=== PATIENT | male | born 1985 | race Caucasian/White ===

== ENCOUNTER 2024-11-19 13:05 | Inpatient (IN) | payer OTHER, SELFPAY ==
[2024-11-17 19:06] VITALS: BP 170/118
[2024-11-17] MEDS: TYLENOL 1000 MG PO (19:13)
[2024-11-17 19:26] LABS: % Basophils 0.5 % (0-2); % Eosinophils 0.3 % (0-6); % Immature Granulocytes 0.5 % (0-0.5); % Lymphocytes 5.8 % (20.5-51.1); % Monocytes 6.8 % (1.7-9.3); % Neutrophils 86.1 % (42.2-75.2); Absolute Basophils 0.1 10^3/uL (0-0.2); Absolute Immature Granulocytes 0.1 10^3/uL (0-0.05); Absolute Lymphocytes 0.6 10^3/uL (1.2-3.4); Absolute Monocytes 0.7 10^3/uL (0.1-0.6); Absolute Neutrophils 8.4 10^3/uL (1.4-6.5); Hematocrit 38.7 % (39.0-52.0); Hemoglobin 13.6 g/dL (13.0-18.0); Mean Corp Hgb Conc. 35.1 g/dL (33.0-37.0); Mean Corpuscular Hgb 31.5 pg (27.0-31.0); Mean Corpuscular Volume 89.6 fL (80.0-94.0); Mean Platelet Volume 8.8 fL (7.4-10.4); Nucleated Red Blood Cells % 0 % (-); Platelet Count 170 10^3/uL (130-400); Red Blood Cell Count 4.32 10^6/uL (4.70-6.10); Red Cell Dist. Width 13.3 % (11.5-14.5); White Blood Cell Count 9.8 10^3/uL (4.8-10.8)
[2024-11-17 19:43] LABS: ALT (SGPT) 26 U/L (0-50); AST (SGOT) 38 U/L (17-59); Alkaline Phosphatase 118 U/L (38-126); Blood Urea Nitrogen 12 mg/dl (9-20); Carbon Dioxide 20 mmol/L (22-30); Chloride 100 mmol/L (98-107); Glucose 113 mg/dl (70-99); Potassium 4.1 mmol/L (3.5-5.1); Sodium 130 mmol/L (135-145); Total Bilirubin 1.2 mg/dl (0.2-1.3); eGFR > 60.00
[2024-11-17 20:52] VITALS: BP 159/118
[2024-11-17 20:55] VITALS: BMI 32.7
[2024-11-17 21:00] VITALS: BP 162/100
[2024-11-17] MEDS: NSS 1000 IV ×2 (21:05→22:42)
[2024-11-17] MEDS: TORADOL 15 MG IV (21:12)
[2024-11-17] MEDS: ATIVAN 0.5 MG IV ×2 (21:12→22:50)
--- NOTE | 2024-11-17 21:19 | ED.GENMED ---
History of Present Illness
<HUGH Gallego Jr. Last Filed: 11/18/24 00:22>
General
Chief Complaint: Abdominal Pain
Source: patient
Exam Limitations: none
Time Seen by Provider: 11/17/24 20:34
Nursing documentation reviewed up to this point in time: agreed with
History of Present Illness
History of Present Illness:
39-year-old male presenting to the emergency department today with concerns of right side abdominal pain starting this morning roughly 12 hours prior to arrival to the emergency department. No nausea or vomiting. Started feeling feverish and
chills over the past few hours. Denies any history of abdominal surgeries. No chest pain shortness of breath no changes in bowel movements.
Review of Systems
<HUGH Gallego Jr. Last Filed: 11/18/24 00:22>
Review of Systems
Allergies reviewed?: Yes
All Other Systems: ROS reviewed and negative except as documented in HPI and ROS
Phy Exam
<HUGH Gallego Jr. Last Filed: 11/18/24 00:22>
Physical Exam
Physical Exam:
GENERAL: Alert , in no apparent distress
EYE: pupils equal and reactive
NECK: Supple, no significant adenopathy.
ENT: o/p clr, mmm.
CARDIAC: Regular rate and rhythm .
LUNGS: Clear breath sounds bilaterally, no acute respiratory distress, no wheezes/rales/rhonchi
ABDOMEN: Right lower quadrant abdominal pain nonperitoneal no tenderness throughout the remainder of the abdomen
NEUROLOGICAL: Alert and oriented, no focal neuro deficits
SKIN: Warm and dry, skin intact.
MUSCULOSKELETAL: No edema, well perfused.
PSYCH: Normal and appropriate interaction.
Sepsis
<Igor Beckford Jr., PA-C - Last Filed: 11/18/24 00:22>
Sepsis Screening
Sepsis Assessment: Sepsis
Sepsis Screen
Sepsis Screen: Sepsis
Date: 11/18/24
Time: 00:22
Course
<Igor Beckford Jr., PA-C - Last Filed: 11/18/24 00:22>
Orders/Labs/Results
Orders:
Orders
11/17/24 19:10
ECG [Electrocardiogram (*1)] Urgent
Reason for Study: Tachycardia
11/17/24 19:11
EKG- Treatment ONCE
Acetaminophen [Tylenol] 1,000 mg .ROUTE .STK-MED ONE
11/17/24 19:13
Acetaminophen [Tylenol] 1,000 mg PO NOW STA
11/17/24 19:16
Complete Blood Count/With Diff Urgent
Comprehensive Metabolic Panel Urgent
11/17/24 20:52
CT Abd/Pel (IV only)-DH only Urgent
Comment:
Reason For Exam: RLQ pain
11/17/24 20:54
Lorazepam [Ativan] 0.5 mg IV NOW STA
11/17/24 20:55
0.9% Sodium Chloride 1000 ml [Nss] 1,000 ml IV BOLUS
11/17/24 21:08
Ketorolac [Toradol] 15 mg IV NOW STA
11/17/24 21:09
Ketorolac [Toradol] 15 mg .ROUTE .STK-MED ONE
11/17/24 21:13
Blood Culture Q30M
JONATHAN Source: Blood/Venous
Specimen Description:
Blood Culture Q30M
JONATHAN Source: Blood/Venous
Specimen Description:
11/17/24 21:19
Piperacillin/Tazo 4.5 Gram [Zosyn] 4.5 gram in 100 ml IV NOW
11/17/24 22:16
Morphine Sulfate 4 mg IV NOW STA
11/17/24 22:28
0.9% Sodium Chloride 1000 ml [Nss] 1,000 ml IV BOLUS
11/17/24 22:47
Lorazepam [Ativan] 0.5 mg IV NOW STA
11/17/24 23:30
Urinalysis Urgent
Date Specimen was Collected: 11/17/24
Time Specimen was Collected: 19:10
Abnormal Lab Results
11/17/24
19:16
RBC 4.32 L 10^6/uL
(4.70-6.10)
Hct 38.7 L %
(39.0-52.0)
MCH 31.5 H pg
(27.0-31.0)
Abs Immat Gran (auto) 0.1 H 10^3/uL
(0-0.05)
Absolute Neuts (auto) 8.4 H 10^3/uL
(1.4-6.5)
Absolute Lymphs (auto) 0.6 L 10^3/uL
(1.2-3.4)
Absolute Monos (auto) 0.7 H 10^3/uL
(0.1-0.6)
Neutrophils % 86.1 H %
(42.2-75.2)
Lymphocytes % 5.8 L %
(20.5-51.1)
Sodium 130 L mmol/L
(135-145)
Carbon Dioxide 20 L mmol/L
(22-30)
Glucose 113 H mg/dl
(70-99)
11/17/24 19:16
11/17/24 19:16
Vital Signs
Initial and Last Documented VS:
Initial Vital Signs
Temp Pulse Resp BP Pulse Ox
100.2 F 146 24 170/118 97
11/17/24 19:06 11/17/24 19:06 11/17/24 19:06 11/17/24 19:06 11/17/24 19:06
Last Documented Vital Signs
Temp Pulse Resp BP Pulse Ox
102.4 F H 134 25 140/101 95
11/17/24 22:45 11/18/24 00:00 11/18/24 00:00 11/18/24 00:00 11/18/24 00:00
<Vangie Madrid MD - Last Filed: 11/17/24 22:49>
Orders/Labs/Results
Orders:
Orders
11/17/24 19:10
ECG [Electrocardiogram (*1)] Urgent
Reason for Study: Tachycardia
11/17/24 19:11
EKG- Treatment ONCE
Acetaminophen [Tylenol] 1,000 mg .ROUTE .STK-MED ONE
11/17/24 19:13
Acetaminophen [Tylenol] 1,000 mg PO NOW STA
11/17/24 19:16
Complete Blood Count/With Diff Urgent
Comprehensive Metabolic Panel Urgent
11/17/24 20:52
CT Abd/Pel (IV only)-[facility] only Urgent
Comment:
Reason For Exam: RLQ pain
11/17/24 20:54
Lorazepam [Ativan] 0.5 mg IV NOW STA
11/17/24 20:55
0.9% Sodium Chloride 1000 ml [Nss] 1,000 ml IV BOLUS
11/17/24 21:08
Ketorolac [Toradol] 15 mg IV NOW STA
11/17/24 21:09
Ketorolac [Toradol] 15 mg .ROUTE .STK-MED ONE
11/17/24 21:13
Blood Culture Q30M
JONATHAN Source: Blood/Venous
Specimen Description:
Blood Culture Q30M
JONATHAN Source: Blood/Venous
Specimen Description:
11/17/24 21:19
Piperacillin/Tazo 4.5 Gram [Zosyn] 4.5 gram in 100 ml IV NOW
11/17/24 22:16
Morphine Sulfate 4 mg IV NOW STA
11/17/24 22:28
0.9% Sodium Chloride 1000 ml [Nss] 1,000 ml IV BOLUS
11/17/24 22:47
Lorazepam [Ativan] 0.5 mg IV NOW STA
11/17/24 23:30
Urinalysis Urgent
Date Specimen was Collected: 11/17/24
Time Specimen was Collected: 19:10
Abnormal Lab Results
11/17/24
19:16
RBC 4.32 L 10^6/uL
(4.70-6.10)
Hct 38.7 L %
(39.0-52.0)
MCH 31.5 H pg
(27.0-31.0)
Abs Immat Gran (auto) 0.1 H 10^3/uL
(0-0.05)
Absolute Neuts (auto) 8.4 H 10^3/uL
(1.4-6.5)
Absolute Lymphs (auto) 0.6 L 10^3/uL
(1.2-3.4)
Absolute Monos (auto) 0.7 H 10^3/uL
(0.1-0.6)
Neutrophils % 86.1 H %
(42.2-75.2)
Lymphocytes % 5.8 L %
(20.5-51.1)
Sodium 130 L mmol/L
(135-145)
Carbon Dioxide 20 L mmol/L
(22-30)
Glucose 113 H mg/dl
(70-99)
11/17/24 19:16
11/17/24 19:16
Vital Signs
Initial and Last Documented VS:
Initial Vital Signs
Temp Pulse Resp BP Pulse Ox
100.2 F 146 24 170/118 97
11/17/24 19:06 11/17/24 19:06 11/17/24 19:06 11/17/24 19:06 11/17/24 19:06
Last Documented Vital Signs
Temp Pulse Resp BP Pulse Ox
102.4 F H 134 25 140/101 95
11/17/24 22:45 11/18/24 00:00 11/18/24 00:00 11/18/24 00:00 11/18/24 00:00
<Igor Beckford Jr., PA-C - Last Filed: 11/18/24 00:22>
MDM/Problems Addressed
MDM/Problems Addressed:
39-year-old male presenting to the emergency department today with concerns of right lower quadrant abdominal pain throughout the day today. On arrival patient tachycardic low-grade temperature. Was given no significant white count does have pain
to the right lower quadrant concern for potential appendicitis. CT scan showing appendicitis without obvious complication. No white count here patient was somewhat tachycardic was given Ativan concerning claims he does have anxiety also given
morphine for pain as well as Toradol for fever. Additionally received 2 L of fluid. Patient in no distress throughout ER stay did have improvement of heart rate here will be admitted. Case discussed with surgeon. Plan for surgery in the morning.
<Igor Beckford Jr., PA-C - Last Filed: 11/18/24 00:22>
*Critical Care Note
Total Time (30-74mins, 75-104mins- exclusive of procedures): Not Applicable
ED Attending Note
<Igor Beckford Jr., PA-C - Last Filed: 11/18/24 00:22>
-
Portions of this chart may have been created with voice recognition software.� Occasional wrong word or��sound alike� substitutions may have occurred due to the inherent limitations of voice recognition software.
<Vangie Madrid MD - Last Filed: 11/17/24 22:49>
ED Attending Note
Patient seen and examined by attending physician: Yes
I performed the substantive portion of visit, reviewed & personally made and approve the management plan that is documented in note by myself or NICOL.: Yes
ED Attending Note:
Patient has a flat affect but also appears anxious. He is tachycardic. Abdomen is mildly distended with right lower quadrant tenderness. Tachycardia may be due to some degree of alcohol withdrawal.
Discharge Plan
Departure
Patient Disposition: Admit
Date of Disposition: 11/18/24
Time of Disposition: 00:21
Admit to: Med/Surg
Admit to doctor: Hiral
Presentation/result/management discussed w/ accepting MD/DO: Gen surgery
Patient with high blood pressure during this ER visit?: No
Condition: Fair
Covid-19: Not Applicable
Discharge Problem:
Acute appendicitis
Prescriptions:
No Action
lorazepam 0.5 mg Tablet
0.5 mg PO TID PRN (Reason: anxiety)
sertraline
PO DAILY
Referrals:
Toney Iqbal MD [Family Provider] -
Interventions
Interventions:
*Risk Screen - Suicide Last Done: 11/17/24 19:06
*General Assessment Last Done: 11/17/24 21:03
*Neglect/Abuse Screening Last Done: 11/17/24 19:06
*ED COVID-19 Vaccine History Last Done: 11/17/24 21:03
KO-[facility] Assessment Last Done: 11/17/24 21:03
Discharge Date and Time
Print Language: URDU
[2024-11-17 21:46] VITALS: BP 159/108
[2024-11-17] MEDS: ZOSYN 100 IV (21:48)
[2024-11-17 22:00] VITALS: BP 156/101
[2024-11-17] MEDS: MORPHINE SULFATE 4 MG IV (22:42)
[2024-11-17 23:00] VITALS: BP 154/114
[2024-11-18] VITALS (16 sets, daily range): BP systolic 10–158; BP diastolic 81–101; BMI 32.8
[2024-11-18 00:33] LABS: Urine Albumin 2+ (Neg - Trace); Urine Bilirubin Negative (Negative); Urine Character Clear (Clear); Urine Color Yellow; Urine Glucose Negative (Negative); Urine Ketone 1+ (Negative); Urine Leukocyte Negative (Negative); Urine Nitrite Negative (Negative); Urine Occult Blood Negative (Negative); Urine Urobilinogen Negative (Neg - 1+)
[2024-11-18 00:49] LABS: Urine Red Blood Cell 0-2 /HPF (0-2); Urine White Cell 0-2 /HPF (0-5)
[2024-11-18] MEDS: OFIRMEV 100 IV (01:49)
[2024-11-18] MEDS: NORMOSOL-R/PLASMALYTE-A 1000 IV (03:00)
[2024-11-18] MEDS: MORPHINE SULFATE 2 MG IV ×3 (03:12→07:35)
[2024-11-18] MEDS: ATIVAN 1 MG IV ×2 (03:13→05:22)
--- NOTE | 2024-11-18 03:34 | HPS.HSE ---
Addendum entered and electronically signed by Delbert Blackman MD 11/18/24 08:16:
Patient's mother updated via phone.
Addendum entered and electronically signed by Delbert Blackman MD 11/18/24 08:12:
I saw and examined the patient.
The PA's note was reviewed and I agree with the note.
Comment:
Seen recently.
History, vitals, labs, imaging reviewed. Patient seen and examined.
39 yo M with acute nonperforated appendicitis and associated fever and RLQ pain/tenderness. Recommended laparoscopic appendectomy. Risks/benefits discussed. Risks covered include but not limited to bleeding, infection, ureteral injury, bowel or
solid organ injury, stapleline leak, and anesthetic risks. He agrees to proceed.
Original Note:
Family Physician
-
Family Physician: Toney Iqbal
Chief Complaint
-
right side abdominal pain
History of Present Illness
This is a 39 year old male who comes to the ED with 12 hours worth of right sided abdominal pain which began in the morning. He had no associated symptoms of n/v/d, dysuria but as the day progressed he had subjective fevers with chills. He came to
the ED this evening for evaluation. PMH includes anxiety, depression and alcohol use/abuse. He states he becomes shaky when he doesn't drink.
Medical History
Past Medical History
Past Medical History: Reports Psychiatric (anxiety, depression, etoh abuse.)
Past Surgical History: Reports None
Social History
Tobacco: Non-smoker
Alcohol: Daily
Drug: None
Personal: Single
Living: With Family
Employment: Employed
Family History
Family History: Diabetes (mother)
Allergies / Home Medications
Allergies reflects when Allergies were last updated in [employer].
Home Medications with original date entered in [employer]
Allergy/Medication List:
Allergies
Allergy/AdvReac Type Severity Reaction Status Date / Time
No Known Allergies Allergy Verified 11/17/24 19:09
Home Medications
lorazepam 0.5 mg tablet 0.5 mg PO TID PRN anxiety 11/17/24
sertraline PO DAILY 11/17/24
Review of Systems
-
A 12 point ROS was completed and negative except as noted: Yes
Constitutional: Reports No Symptoms
EENT: Reports No Symptoms
Respiratory: Reports No Symptoms
Cardiac: Reports No Symptoms
Abdomen/GI: Reports Abdominal Pain
: Reports No Symptoms
Musculoskeletal: Reports No Symptoms
Skin: Reports No Symptoms
Neurological: Reports No Symptoms
Endocrine: Reports No Symptoms
Hematologic/Lymphatic: Reports No Symptoms
Psych: Reports Depression and Anxiety
Physical Exam
Vital Signs
Vital Signs
Temp Pulse Resp BP Pulse Ox
100.3 F 140 20 149/101 94
11/18/24 02:38 11/18/24 02:38 11/18/24 02:38 11/18/24 02:38 11/18/24 02:38
Physical Exam
General: Well Developed, Comfortable and Sweats
HEENT: NormoCephalic, Moist mucous membranes and PERRLA
Respiratory: Clear
Cardiac: S1/S2 and Regular Rhythm
Breast: Deferred by me
GI: Tender and Distended
Rectal: Deferred by Provider
Genito-urinary: Clear Urine
Musculoskeletal: No Clubbing, No Cyanosis and No Edema
Skin: Warm and Dry
Neuro: Awake, Alert, No Motor Deficits and Nonfocal/grossly intact
Hematologic/Lymphatic: No Lymphadenopathy
Psych: Anxious
Laboratory Results
-
11/17/24 19:16
11/17/24 19:16
Laboratory Results
Total Bilirubin 1.2 mg/dl (0.2-1.3) 11/17/24 19:16
AST 38 U/L (17-59) 11/17/24 19:16
ALT 26 U/L (0-50) 11/17/24 19:16
Alkaline Phosphatase 118 U/L (38-126) 11/17/24 19:16
Data Reviewed
-
CT Scan: Report Reviewed by me
Lab Data: Labs Reviewed by me
Old Records: Reviewed
Impression/Plan
-
IMPRESSION: Acute appendicitis
PLAN: This is a 39 year old male who comes to the ED with 12 hours worth of right sided abdominal pain which began in the morning. He had no associated symptoms of n/v/d, dysuria but as the day progressed he had subjective fevers with chills. He
came to the ED this evening for evaluation. PMH includes anxiety, depression and alcohol use/abuse. He states he becomes shaky when he doesn't drink.
* Acute appendicitis: NPO, NS IVF, Zosyn IV, Zofran IV nausea prn, Morphine IV prn pain.
*Fever: Blood and urine cultures
*ETOH use: MSAS with protocol.
*HTN: Trend. Lifestyle modification after discharge. weight loss, sobriety, exercise etc.
*Tachycardia: Telemetry. IVF. Possible withdrawal component vs fever.
*Anxiety/depression: Restart outpatient Sertraline and lorazepam. ETOH counseling since likely uses it to self medicate.
*DVT prophylaxis: SCDs, TEDs, OOB
*Disposition: FC. General surgery service.
[2024-11-18] MEDS: ZOSYN 100 IV (05:13)
--- NOTE | 2024-11-18 05:37 | PTCARENOTE ---
02:30 pt rec'vd from ER is very anxious, diaphoretic with s/s of withdrawal he does drink , b/p 149/107 and temp 100.3 hr 144. WEIGHT CALCULATOR given SBAR n/o for MSAS, change care to tele. Nurse breezy to complete full skin assessment , pt declined backside to be
assessed.
[2024-11-18] MEDS: ZOLOFT PO (08:11)
[2024-11-18] MEDS: THIAMINE INJECTION 200 MG IV ×2 (08:24→20:22)
[2024-11-18 08:47] LABS: INR 1.15
--- NOTE | 2024-11-18 10:57 | W.IMMPOSTOP ---
Addendum entered and electronically signed by Delbert Blackman MD 11/18/24 11:03:
Patient's mother updated via phone conversation.
Original Note:
Surgical Immed Post Op Note
-
Primary Surgeon: Dianne Blackman MD
Assisting Surgeon: none
Pre-op Diagnosis: acute appendicitis
Post-op Diagnosis: same (with perforation and abscess)
Procedure Performed: 1) laparoscopic appendectomy 2) drainage abdominal abscess
Anesthesia Type: general plus local
Specimen / Cultures: 1) abdominal abscess cultures 2) appendix
Estimated Blood Loss: 20 cc
Complications: no immediate
Operative Findings: perforated appendicitis with abscess
#19 Jung drain placed.
Will send back to med surg on antibiotics.
Sips and chips ok.
[2024-11-18 11:35] LABS: % Basophils 0.4 % (0-2); % Eosinophils 0.8 % (0-6); % Immature Granulocytes 0.4 % (0-0.5); % Lymphocytes 6.1 % (20.5-51.1); % Monocytes 5.1 % (1.7-9.3); % Neutrophils 87.2 % (42.2-75.2); Absolute Eosinophils 0.1 10^3/uL (0-0.7); Absolute Lymphocytes 0.6 10^3/uL (1.2-3.4); Absolute Monocytes 0.5 10^3/uL (0.1-0.6); Absolute Neutrophils 8.3 10^3/uL (1.4-6.5); Mean Corp Hgb Conc. 34.3 g/dL (33.0-37.0); Mean Corpuscular Hgb 31.7 pg (27.0-31.0); Mean Corpuscular Volume 92.6 fL (80.0-94.0); Mean Platelet Volume 8.7 fL (7.4-10.4); Nucleated Red Blood Cells % 0 % (-); Platelet Count 138 10^3/uL (130-400); Red Blood Cell Count 3.78 10^6/uL (4.70-6.10); Red Cell Dist. Width 13.5 % (11.5-14.5); White Blood Cell Count 9.5 10^3/uL (4.8-10.8)
[2024-11-18 11:50] LABS: Blood Urea Nitrogen 10 mg/dl (9-20); Calcium 7.9 mg/dl (8.4-10.2); Carbon Dioxide 21 mmol/L (22-30); Chloride 99 mmol/L (98-107); Estimated Creatinine Clearance > 125 ml/min; Glucose 126 mg/dl (70-99); Potassium 3.9 mmol/L (3.5-5.1); Sodium 132 mmol/L (135-145); eGFR > 60.00
[2024-11-18] MEDS: TORADOL 15 MG IV ×3 (11:54→23:34)
[2024-11-18] MEDS: TYLENOL 650 MG PO ×4 (11:54→23:35)
[2024-11-18] MEDS: ZOLOFT 100 MG PO (11:58)
--- NOTE | 2024-11-18 13:46 | CM ---
Reviewed the chart notes and spoke with the patient at the bedside. The patient resides with his parents in a two story home with one step to enter. The patient reports no DME/VN/SNF in the past. The patient confirmed his pharmacy of choice is
the [facility]. [facility] continues to be available to patient/family and is monitoring medical plan for needs at discharge.
Plan: Discharge to home when medically stable. No needs anticipated.
--- NOTE | 2024-11-18 17:11 | W.PN.UPDATE ---
Update Note
Progress Note Update
Patient apparently with new extensive rash on his back per nursing. I suspect penicillin/Zosyn allergy. Will switch to Levaquin and Flagyl. Benadryl as needed for pruritus.
[2024-11-18] MEDS: BENADRYL 25 MG IV (17:18)
--- NOTE | 2024-11-18 17:25 | PTCARENOTE ---
Patient noted to have a pruritic macular patchy rash throughout entire back. Dr. Blackman notified and ordered benadryl, to d/c zosyn and start flagyl and levaquin. Penicillin allergy added to chart. Benadryl was administered as ordered.
[2024-11-18] MEDS: FLAGYL 500 MG 100 IV (17:35)
[2024-11-18] MEDS: LEVAQUIN 150 IV (18:37)
[2024-11-18] MEDS: ATIVAN 0.5 MG PO (22:34)
[2024-11-19] MEDS: FLAGYL 500 MG 100 IV ×3 (02:30→17:29)
[2024-11-19 03:15] VITALS: BP 137/94
[2024-11-19 04:57] VITALS: BMI 33.2
[2024-11-19] MEDS: TYLENOL 650 MG PO ×6 (04:57→23:41)
[2024-11-19] MEDS: ATIVAN 0.5 MG PO (05:01)
[2024-11-19] MEDS: TORADOL 15 MG IV ×4 (05:01→23:42)
[2024-11-19] MEDS: NORMOSOL-R/PLASMALYTE-A 1000 IV (05:01)
[2024-11-19 05:40] LABS: % Basophils 0.1 % (0-2); % Eosinophils 0.2 % (0-6); % Immature Granulocytes 1.1 % (0-0.5); % Monocytes 5.6 % (1.7-9.3); Absolute Immature Granulocytes 0.1 10^3/uL (0-0.05); Absolute Lymphocytes 0.5 10^3/uL (1.2-3.4); Absolute Monocytes 0.5 10^3/uL (0.1-0.6); Absolute Neutrophils 7.7 10^3/uL (1.4-6.5); Hematocrit 31.7 % (39.0-52.0); Hemoglobin 10.9 g/dL (13.0-18.0); Mean Corp Hgb Conc. 34.4 g/dL (33.0-37.0); Mean Corpuscular Hgb 31.5 pg (27.0-31.0); Mean Corpuscular Volume 91.6 fL (80.0-94.0); Nucleated Red Blood Cells % 0 % (-); Platelet Count 113 10^3/uL (130-400); Red Blood Cell Count 3.46 10^6/uL (4.70-6.10); Red Cell Dist. Width 13.3 % (11.5-14.5); White Blood Cell Count 8.9 10^3/uL (4.8-10.8)
[2024-11-19 06:08] LABS: Blood Urea Nitrogen 15 mg/dl (9-20); Carbon Dioxide 24 mmol/L (22-30); Chloride 100 mmol/L (98-107); Estimated Creatinine Clearance > 125 ml/min; Glucose 98 mg/dl (70-99); Potassium 3.6 mmol/L (3.5-5.1); Sodium 132 mmol/L (135-145); eGFR > 60.00
[2024-11-19 07:40] VITALS: BP 129/91
[2024-11-19] MEDS: ZOLOFT 100 MG PO (07:48)
[2024-11-19] MEDS: THIAMINE INJECTION 200 MG IV ×2 (07:49→19:39)
--- NOTE | 2024-11-19 10:02 | W.PN.CRS1 ---
Today's Communication / Plan
-
continue antibiotics
maintain lola drain
fulls
lovenox
Assessment/Plan
-
POD#1 1) laparoscopic appendectomy 2) drainage abdominal abscess
WBC: 8.9, vitals normal
-Advance diet to fulls
-D/C IVFs when tolerating po
-Lovenox added for DVT prophylaxis
-Continue IV antibiotics (levaquin/flagyl)
-Await OR cultures
-OOB as tolerated
-Continue LOLA drain until discharge
-Pain control: Tylenol/Toradol standing, Diluadid PRN
Subjective Data
Procedure
11/18/2024- 1) laparoscopic appendectomy 2) drainage abdominal abscess
Subjective Data
Date of Service: November 19, 2024
Patient states he's not that hungry. He has mild pain. Overall he feels better. He denies nausea or vomiting. He has flatus and no bowel movements.
Objective Data
-
Vital Signs
Temp Pulse Resp BP Pulse Ox
98.2 F 85 16 129/91 96
11/19/24 07:40 11/19/24 07:40 11/19/24 07:40 11/19/24 07:40 11/19/24 07:40
Intake & Output
11/18/24 11/19/24 11/20/24
06:59 06:59 06:59
Intake Total 340 / 340 2750 / 2750
Output Total 60 / 60
Balance 340 / 340 2690 / 2690
Intake:
Oral fluids 960 / 960
IV fluids (Total) 240 / 240 1590 / 1590
Normosol 150 / 150
IV piggybacks 100 / 100 200 / 200
Output:
Drain Output (Total) 60 / 60
Left Jae-Chowdary 60 / 60
Other:
Number of approximated MODERATE 1
amounts of urine
Number of approximated LARGE 1
amounts of urine
Lab Results
11/19/24 04:54
11/19/24 04:54
Physical Exam
-
General: No Acute Distress and AOx3
Abdomen: Soft, Non Distended, Tender (mild around incision) and Other (lola drain serosanginous)
Skin: Warm and Dry
[2024-11-19 11:15] VITALS: BP 141/99
--- NOTE | 2024-11-19 12:14 | CM ---
Chart reviewed. Met with pt
Pt reporting feeling better
Will have ride home at discharge
Plan - anticipate home no needs
[2024-11-19 15:35] VITALS: BP 149/107
[2024-11-19] MEDS: LOVENOX 40 MG SC (17:30)
[2024-11-19 19:36] VITALS: BP 146/111
[2024-11-19] MEDS: LEVAQUIN 150 IV (20:04)
[2024-11-19 22:53] VITALS: BP 154/109
[2024-11-19] MEDS: DILAUDID 0.5 MG IV (23:00)
[2024-11-20] MEDS: ATIVAN 1 MG PO (00:07)
[2024-11-20] MEDS: FLAGYL 500 MG 100 IV (02:05)
[2024-11-20 02:37] VITALS: BP 148/98
[2024-11-20] MEDS: TYLENOL PO (04:28)
[2024-11-20] MEDS: TORADOL 15 MG IV (05:23)
--- NOTE | 2024-11-20 05:30 | PTCARENOTE ---
pts MSAS 6, pt declined Ativan 04:00. Pt rec'vd his Toradol at 05:30 and was offered prn Ativan as he appears anxious and agitated, pt declined. Pt is agitated with J-P drain and requested it be pulled, pt was educated and emotional support at
length given, pt verbalized he will wait to be assessed by MD in the morning pt did continue to decline Ativan.
[2024-11-20 06:00] VITALS: BMI 32.9
[2024-11-20 07:03] LABS: % Basophils 0.4 % (0-2); % Eosinophils 1.3 % (0-6); % Immature Granulocytes 1.1 % (0-0.5); % Lymphocytes 13.5 % (20.5-51.1); % Monocytes 5.1 % (1.7-9.3); % Neutrophils 78.6 % (42.2-75.2); Absolute Eosinophils 0.1 10^3/uL (0-0.7); Absolute Immature Granulocytes 0.1 10^3/uL (0-0.05); Absolute Monocytes 0.4 10^3/uL (0.1-0.6); Absolute Neutrophils 5.6 10^3/uL (1.4-6.5); Hematocrit 31.4 % (39.0-52.0); Hemoglobin 10.8 g/dL (13.0-18.0); Mean Corp Hgb Conc. 34.4 g/dL (33.0-37.0); Mean Corpuscular Hgb 31.8 pg (27.0-31.0); Mean Corpuscular Volume 92.4 fL (80.0-94.0); Mean Platelet Volume 9.5 fL (7.4-10.4); Nucleated Red Blood Cells % 0 % (-); Platelet Count 116 10^3/uL (130-400); Red Cell Dist. Width 13.2 % (11.5-14.5); White Blood Cell Count 7.1 10^3/uL (4.8-10.8)
[2024-11-20 07:16] VITALS: BP 156/110
[2024-11-20 07:28] LABS: Blood Urea Nitrogen 14 mg/dl (9-20); Calcium 7.8 mg/dl (8.4-10.2); Carbon Dioxide 22 mmol/L (22-30); Chloride 102 mmol/L (98-107); Estimated Creatinine Clearance > 125 ml/min; Glucose 69 mg/dl (70-99); Potassium 3.2 mmol/L (3.5-5.1); Sodium 135 mmol/L (135-145); eGFR > 60.00
[2024-11-20] MEDS: ZOLOFT 100 MG PO (08:26)
[2024-11-20] MEDS: TYLENOL 650 MG PO (08:26)
[2024-11-20] MEDS: THIAMINE INJECTION IV ×2 (08:26→08:31)
--- NOTE | 2024-11-20 09:06 | W.PN.CRS1 ---
Today's Communication / Plan
-
discharge
Assessment/Plan
-
POD#2 1) laparoscopic appendectomy 2) drainage abdominal abscess
WBC: 7.1, vitals normal
-Advance diet to regular
-Lovenox added for DVT prophylaxis
-Continue IV antibiotics (levaquin/flagyl) - 5 day course total
-OR cultures pending
-OOB as tolerated
-Lola drain discontinued
-Pain control: Tylenol/Toradol standing, Dilaudid PRN
-Okay for discharge today. All discharge instructions discussed with patient including medications, activity levels and follow up. All questions answered.
Subjective Data
Procedure
11/18/2024- 1) laparoscopic appendectomy 2) drainage abdominal abscess
Subjective Data
Date of Service: November 20, 2024
Patient states he feels well. He denies nausea or vomiting. He has flatus. His pain is controlled. He is hungry and would like to go home.
Objective Data
-
Vital Signs
Temp Pulse Resp BP Pulse Ox
98.1 F 104 19 156/110 94
11/20/24 07:16 11/20/24 07:16 11/20/24 07:16 11/20/24 07:16 11/20/24 07:16
Intake & Output
11/19/24 11/20/24 11/21/24
06:59 06:59 06:59
Intake Total 2750 / 2750 1835 / 1835
Output Total 60 / 60 115 / 115
Balance 2690 / 2690 1720 / 1720
Intake:
Oral fluids 960 / 960 1385 / 1385
IV fluids (Total) 1590 / 1590
Normosol 150 / 150
IV piggybacks 200 / 200 450 / 450
Output:
Drain Output (Total) 60 / 60 115 / 115
Left Jae-Chowdary
Other:
Number of approximated MODERATE 2
amounts of urine
Number of approximated LARGE 1 1
amounts of urine
Lab Results
11/20/24 05:54
11/20/24 05:54
Physical Exam
-
General: No Acute Distress and AOx3
Abdomen: Soft, Non Distended, Non Tender and Other (lola drain serous)
Skin: Warm and Dry
Incision: Clear, Dry, Intact
--- NOTE | 2024-11-20 09:19 | W.DS.TRANS ---
DC Summary - Top Icer
-
Discharge Instructions:
Discharge Diagnosis/Procedures 1) laparoscopic appendectomy 2) drainage
abdominal abscess
Diet Regular
Activity No strenuous activity
Additional Activity No lifting over 10lbs (gallon of milk)
Driving Restrictions No driving for 24 hours
Bathing Restrictions OK to Shower
Wound Care Allow glue to naturally fall off (do not pick at
incision)
Instructions: Appendectomy - Discharge instructions
Stand-Alone Forms:
Changes to Home Medications: Yes
Discharge Medications:
DC Medications w/original date entered in [employer]
lorazepam 0.5 mg tablet 0.5 mg PO TID PRN anxiety 11/17/24
sertraline PO DAILY 11/17/24
levofloxacin 750 mg tablet 750 mg PO DAILY 3 days #3 tabs 11/20/24
metronidazole 500 mg tablet 500 mg PO Q8H 3 days #9 tabs 11/20/24
Home Medication Changes
levofloxacin 750 mg tablet 750 mg PO DAILY 3 days #3 tabs 11/20/24
metronidazole 500 mg tablet 500 mg PO Q8H 3 days #9 tabs 11/20/24
Pending Results: Yes
--- NOTE | 2024-11-20 09:26 | CM ---
Pt for discharge today
Has ride home
Plan - home no needs
== END 2024-11-20 10:16 | disposition home or self-care (01) | DRG 399 ==
LOC: 2 SOUTH 13:05
PROVIDERS: Emergency Medicine; Physician Assistant; ADMITTING PHYSICIAN Surgery; EMERGENCY PHYSICIAN Emergency Medicine; FAMILY PHYSICIAN Family Medicine
PROC: 0DTJ4ZZ Resection of Appendix, Percutaneous Endoscopic Approach (ICD-10-PCS; 2024-11-18)
DX: K35.33 Acute appendicitis with perforation, localized peritonitis, and gangrene, with abscess (principal); F41.9 Anxiety disorder, unspecified; F32.A Depression, unspecified; F10.10 Alcohol abuse, uncomplicated; Z83.3 Family history of diabetes mellitus; I10 Essential (primary) hypertension
CPT/HCPCS: 88304; 74177; 80048; 80053; 81003; 81015; 85025; 85610; 86850; 86900; 86901; 87015; 87040; 87070; 87077; 87186; 87205; 93005; 96361; 96365; 96375; 99285; Q9967